=== PATIENT | female | born 1935 | race Caucasian/White ===

== ENCOUNTER 2018-08-31 21:08 | Inpatient (IN) | payer MEDICARE, MEDICAID ==
[~2018-08-31] VITALS: Ht 162.6 cm; Wt 61.8 kg
--- NOTE | 2018-08-31 21:03 | NUR ---
ED Nurse Note: Pt arrived ER with EMT team. EMT states Pt is current having R face swallen to neck, no c/o pain, warm to touch. Pt is Demantia, AO x 1 time, VSS, on room air no distress. ERMD seen Pt at bedside.
[~2018-08-31 21:08] MED LIST: CLOTRIMAZOLE15 GM TOPIC
[2018-08-31] MEDS ORDERED: Ampicillin/Sulbactam Sod 3 GM in NS 110 ML IVPB ONE (21:15)
--- NOTE | 2018-08-31 21:15 | NUR ---
ED Nurse Note: Blood sample sent to Lab.
[2018-08-31 21:35] LABS: BASOPHILS % (AUTO) 0.8 % (0.0-2.0); EOSINOPHILS % (AUTO) 4.1 % (0.0-3.0); HEMATOCRIT 36.7 % (37.0-47.0); HEMOGLOBIN 12.1 G/DL (12.0-16.0); LYMPHOCYTES % (AUTO) 24.2 % (20.0-45.0); MEAN CORPUSCULAR VOLUME 92 FL (80-99); PLATELET COUNT 177 K/UL (150-450); RED BLOOD COUNT 3.98 M/UL (4.20-5.40); RED CELL DISTRIBUTION WIDTH 12.8 % (11.6-14.8); WHITE BLOOD COUNT 7.2 K/UL (4.8-10.8)
[2018-08-31 21:50] LABS: ANION GAP 8 mmol/L (5-15); BLOOD UREA NITROGEN 35 mg/dL (7-18); CALCIUM 8.7 MG/DL (8.5-10.1); CARBON DIOXIDE 28 MMOL/L (21-32); CHLORIDE 106 MMOL/L (98-107); CREATININE 0.7 MG/DL (0.55-1.30); SODIUM 142 MMOL/L (136-145)
[2018-08-31 22:04] LABS: ALANINE AMINOTRANSFERASE 18 U/L (12-78); ALBUMIN/GLOBULIN RATIO 0.7 (1.0-2.7); ALKALINE PHOSPHATASE 95 U/L (46-116); ASPARTATE AMINO TRANSFERASE 13 U/L (15-37); BILIRUBIN,TOTAL 0.3 MG/DL (0.2-1.0)
[2018-08-31 22:14] VITALS: BP 143/81
--- NOTE | 2018-08-31 23:17 | Emergency Room Report ---
History of Present Illness General Chief Complaint: General Complaint Source: Medical Record Present Illness HPI 83-year-old female presents ED for evaluation. Sent to ER for evaluation. Has redness to her face and neck 1 day. Noticed by nursing staff today. Coming from half-way facility. Denies pain. Denies fevers or chills. Denies any shortness of breath. No other aggravating relieving factors. Denies any other associated symptoms Allergies: Coded Allergies: No Known Allergies (Unverified , 08/31/18) Patient History Past Medical History: HTN Past Surgical History: none Pertinent Family History: none Social History: Denies: smoking, alcohol use, drug use Now: No Immunizations: UTD Reviewed Nursing Documentation: PMH: Agreed; PSxH: Agreed Nursing Documentation-PMH Hx Hypertension: Yes Hx Pacemaker: No Hx Asthma: No Hx COPD: No Hx Diabetes: No Hx Cancer: No Hx Dialysis: No Hx Seizures: No Review of Systems All Other Systems: negative except mentioned in HPI Physical Exam Vital Signs Date Time Temp Pulse Resp B/P (MAP) Pulse Ox O2 Delivery O2 Flow Rate FiO2 08/31/18 20:53 98.1 72 16 153/83 92 Room Air Sp02 EP Interpretation: reviewed, normal General Appearance: no apparent distress, alert, GCS 15, non-toxic Head: normocephalic, atraumatic Eyes: bilateral eye normal inspection, bilateral eye PERRL ENT: hearing grossly normal, normal pharynx, no angioedema, normal voice Neck: full range of motion, supple/symm/no masses Respiratory: chest non-tender, lungs clear, normal breath sounds, speaking full sentences Cardiovascular #1: regular rate, rhythm, no edema Cardiovascular #2: 2+ carotid (R), 2+ carotid (L), 2+ radial (R), 2+ radial (L) , 2+ dorsalis pedis (R), 2+ dorsalis pedis (L) Gastrointestinal: normal bowel sounds, non tender, soft, non-distended, no guarding, no rebound Rectal: deferred Genitourinary: normal inspection, no CVA tenderness Musculoskeletal: back normal, gait/station normal, normal range of motion, non- tender Neurologic: alert, oriented x3, responsive, motor strength/tone normal, sensory intact, speech normal Psychiatric: judgement/insight normal, memory normal, mood/affect normal, no suicidal/homicidal ideation Reflexes: 3+ bicep (R), 3+ bicep (L), 3+ tricep (R), 3+ tricep (L), 3+ knee (R) , 3+ knee (L) Skin: normal color, warm/dry, well hydrated, other - erythema/induration to R side neck, R lower face. no fluctuance or discharge Lymphatic: no adenopathy Medical Decision Making Diagnostic Impression: Primary Impression: Facial cellulitis ER Course Hospital Course 83-year-old female presents to ED with redness, warmth to neck and face Differential diagnoses include: Cellulitis, abscess, rash. Clinical course Patient placed on stretcher. After initial history, physical exam reveals an elderly female in no acute distress. On exam there is area of significant erythema and induration to the right side of neck and lower face. No fluctuance or discharge I ordered labs, blood Cx, CXR labs reviewed - no leukocytosis, Hb/Hct stable, no electrolyte abnormalities, lactic ok CXR - atelectasis , no consolidation or infiltrate antibiotics given. Case discussed with Dr Kruger and he agreed to accept the patient to his service for further care and support Diagnosis - facial cellulitis Patient admitted to floor in serious condition Labs Test 08/31/18 21:21 White Blood Count 7.2 K/UL (4.8-10.8) Red Blood Count 3.98 M/UL (4.20-5.40) Hemoglobin 12.1 G/DL (12.0-16.0) Hematocrit 36.7 % (37.0-47.0) Mean Corpuscular Volume 92 FL (80-99) Mean Corpuscular Hemoglobin 30.4 PG (27.0-31.0) Mean Corpuscular Hemoglobin Concent 33.1 G/DL (32.0-36.0) Red Cell Distribution Width 12.8 % (11.6-14.8) Platelet Count 177 K/UL (150-450) Mean Platelet Volume 6.6 FL (6.5-10.1) Neutrophils (%) (Auto) 60.0 % (45.0-75.0) Lymphocytes (%) (Auto) 24.2 % (20.0-45.0) Monocytes (%) (Auto) 11.0 % (1.0-10.0) Eosinophils (%) (Auto) 4.1 % (0.0-3.0) Basophils (%) (Auto) 0.8 % (0.0-2.0) Sodium Level 142 MMOL/L (136-145) Potassium Level 4.0 MMOL/L (3.5-5.1) Chloride Level 106 MMOL/L (98-107) Carbon Dioxide Level 28 MMOL/L (21-32) Anion Gap 8 mmol/L (5-15) Blood Urea Nitrogen 35 mg/dL (7-18) Creatinine 0.7 MG/DL (0.55-1.30) Estimat Glomerular Filtration Rate mL/min (>60) Glucose Level 105 MG/DL (74-106) Lactic Acid Level 1.00 mmol/L (0.4-2.0) Calcium Level 8.7 MG/DL (8.5-10.1) Total Bilirubin 0.3 MG/DL (0.2-1.0) Aspartate Amino Transf (AST/SGOT) 13 U/L (15-37) Alanine Aminotransferase (ALT/SGPT) 18 U/L (12-78) Alkaline Phosphatase 95 U/L (46-116) Total Protein 7.1 G/DL (6.4-8.2) Albumin 3.0 G/DL (3.4-5.0) Globulin 4.1 g/dL Albumin/Globulin Ratio 0.7 (1.0-2.7) Chest X-Ray Diagnostic Results Chest X-Ray Diagnostic Results : Chest X-Ray Ordered: Yes # of Views/Limited/Complete: 1 View Indication: Other EP Interpretation: Yes Interpretation: no effusion, no pneumothorax, other - atelectasis Impression: Other - atelectasis Electronically Signed by: Electronically signed by Joseluis Pittman MD Last Vital Signs Date Time Temp Pulse Resp B/P (MAP) Pulse Ox O2 Delivery O2 Flow Rate FiO2 08/31/18 22:14 98.4 78 18 143/81 96 Room Air Status: improved Disposition: ADMITTED INPATIENT Condition: Serious Referrals: Ramirez Kruger DO (PCP) Joseluis Pittman MD Aug 31, 2018 23:17
--- NOTE | 2018-08-31 23:22 | Diagnostic Imaging Report ---
EXAM: XR Chest, 1 View CLINICAL HISTORY: COUGH TECHNIQUE: Frontal view of the chest. COMPARISON: No relevant prior studies available. FINDINGS: Lungs: Bibasilar atelectasis. Some fibrotic changes are seen in particular in the left lung base. Bronchiectasis is also seen. No consolidation. Pleural space: Unremarkable. No pneumothorax. Heart: Cardiac silhouette appears mildly enlarged, possibly exaggerated due to technique. Mediastinum: Unremarkable. Bones/joints: Unremarkable. Vasculature: Atherosclerosis of the aorta. IMPRESSION: Bibasilar atelectasis. Some fibrotic changes are seen in particular in the left lung base. Bronchiectasis is also seen. No consolidation.
[2018-09-01] VITALS (7 sets, daily range): BP systolic 136–172; BP diastolic 76–92
--- NOTE | 2018-09-01 | NUR ---
ED Nurse Note: Urine sample, MRSA,VRE, CRE culture sent to lab.
[2018-09-01 00:27] LABS: APPEARANCE,URINE CLOUDY; BILIRUBIN, URINE NEGATIVE (NEGATIVE); COLOR,URINE PALE YELLOW; GLUCOSE, URINE (UA) NEGATIVE (NEGATIVE); KETONES,URINE NEGATIVE (NEGATIVE); LEUKOCYTE ESTERASE ,URINE 3+ (NEGATIVE); NITRITE,URINE POSITIVE (NEGATIVE); PH,URINE 6 (4.5-8.0); PROTEIN,URINE 1+ (NEGATIVE); UROBILINOGEN,URINE NORMAL MG/DL (0.0-1.0)
--- NOTE | 2018-09-01 00:50 | NUR ---
ED Nurse Note: Admit Pt to 4E room 406-2, Pt is AO x 1 time, VSS, ob=n room air no distress. Skin issue report to floor RN. Report given to Charge nurse Yon.
--- NOTE | 2018-09-01 01:00 | NUR ---
ED Nurse Note: Message left to Dr pedersne for admit orders, await for respond back.
[2018-09-01] MEDS ORDERED: ACETAMINOPHEN325 M1 ORAL (02:29)
[2018-09-01] MEDS ORDERED: LEVOTHYROXINE75 MCG ORAL (02:29)
[2018-09-01] MEDS ORDERED: SENNA8.6 M2 PO (02:29)
[2018-09-01] MEDS ORDERED: ASPIRIN EC81 MG ORAL (02:29)
[2018-09-01] MEDS ORDERED: ARTIFICIAL TEAR15 ML BOTH EYES (02:29)
[2018-09-01] MEDS ORDERED: MULTIVITAMINS1 EAC2 ORAL (02:29)
[2018-09-01] MEDS ORDERED: BISACODYL5 MG RECTAL (02:29)
[2018-09-01] MEDS ORDERED: SORBITOL PO (02:29)
--- NOTE | 2018-09-01 02:41 | NUR ---
NURSE NOTES: Patient came up with no patient belongings.
--- NOTE | 2018-09-01 02:41 | NUR ---
NURSE NOTES: RECEIVED PATIENT FROM ER, RELIEF CHARGE NURSE GOT REPORT FROM NAN YOUNG. PATIENT IN BED, AWAKE, ALERT TO NAME AND PLACE. ORIENTATED TO ROOM AND USE OF CALL LIGHT FOR ASSISTANCE. IV IN PLACE, PATENT. PATIENT DENIES ANY FEELING OF PAIN. NO S/S RESPIRATORY DISTRESS NOTED. SKIN ASSESSMENT DONE, PINK AND REDNESS NOTED IN THE SACRAL/BUTTOCKS AREA AND PERINEAL AREA. WCP TAKEN AND WILL BE UPLOADED. PUREWICK PUT ON FOR INCONTINENCE MANAGEMENT. PATIENT HAD A BOWEL MOVEMENT. BED IN LOWEST POSITION, CALL LIGHT WITHIN REACH, BED ALARM ON. WILL CONTINUE TO MONITOR. LEFT MESSAGE FOR DR. ADORNO REGARDING ADMISSION ORDERS, AWAITING RESPONSE.
--- NOTE | 2018-09-01 03:31 | NUR ---
NURSE NOTES: Called and left another message for Dr. Kruger regarding admission orders, awaiting response.
[2018-09-01] MEDS: Levothyroxine 25mcg tab ORAL SCH (05:58)
--- NOTE | 2018-09-01 07:04 | NUR ---
HAND-OFF: Report given to BRIAN Faye RN.
--- NOTE | 2018-09-01 07:26 | NUR ---
NURSE NOTES: Received report from NAN Crum. Patient alert, verbally responsive. no distress noted. no c/o pain. bed in lowest position. call light within reach. will continue to monitor.
[2018-09-01] MEDS: Aspirin EC 81mg tab ORAL SCH (08:19)
[2018-09-01] MEDS ORDERED: Sorbitol Solution UD 30ml ORAL PRN (09:00)
[2018-09-01] MEDS: Artificial Tears 1.4% Op Soln BOTH EYES SCH (10:30)
--- NOTE | 2018-09-01 10:32 | NUR ---
NURSE NOTES: administered artificial tear at 1030 d/t late delivery. scheduled at 9am.
--- NOTE | 2018-09-01 11:39 | NUR ---
CASE MANAGEMENT: INITIAL REVIEW 83 YO F BIBA [place] [facility] [place] CC: REDNESS/SWELLING RIGHT -SIDE NECK PMHx: HTN. SI:FACIAL CELLULITIS. T 98.1 HR 72 RR 16 B/P 153/83 SATS 92% ON RA BUN 35 AST 13 IS: UNASYN IV X1 NS BOLUS X1 PATIENT ADMITTED TO MED/SURG 08/31/2018 @ 0560 DCP:PATIENT TO BE DISCHARGED TO SNF ONCE MEDICALLY CLEARED. PLAN OF CARE: WOUND CARE
[2018-09-01] MEDS: ceFAZolin sod 1 GM in D5W 55 ML IVPB SCH ×2 (15:32→21:28)
--- NOTE | 2018-09-01 17:44 | Consultation ---
DATE OF CONSULTATION: 09/01/2018 INFECTIOUS DISEASE CONSULTATION CONSULTING PHYSICIAN: Jose J Leon M.D. PRIMARY ATTENDING PHYSICIAN: Ramirez Kruger D.O., and Ann-Marie Purvis M.D., who is covering. REASON FOR CONSULTATION: Right facial cellulitis. HISTORY OF PRESENT ILLNESS: This is an 83-year-old white female who is a [place] [facility] resident, admitted yesterday because of erythema in the right side of the face for 1 day. The patient does not have any pain and other symptoms. PAST MEDICAL HISTORY: Significant for hypertension, hypothyroidism, history of osteoporosis, hyperlipidemia. ALLERGIES: No known drug allergy. MEDICATIONS: Getting Senokot, Artificial Tears, multivitamin, sorbitol, levothyroxine. Got a dose of Unasyn. SOCIAL HISTORY: shelter resident. . No history of alcohol or drug abuse or smoking. REVIEW OF SYSTEMS: The patient denies any fever, chills, pain, nausea, vomiting, difficulty of passing urine. PHYSICAL EXAMINATION: VITAL SIGNS: Temperature 98.3, pulse 65, blood pressure 149/83. GENERAL APPEARANCE: No acute distress. HEAD AND NECK: She has decayed tooth, likely gingivitis. She has erythema in right side of the face involving the ear without any discharge. HEART: Normal rate. LUNGS: Clear. ABDOMEN: Soft, nontender. EXTREMITIES: She has no edema. She has muscle atrophy. NEUROLOGIC: She is hard of hearing. She has hearing loss. LABORATORY AND DIAGNOSTIC DATA: Sodium 142, potassium 4, chloride 106, bicarbonate 28, BUN 35, creatinine 0.7, albumin 3. WBC 7.2, hemoglobin 12.1, hematocrit 36.7, and platelet is 177,000. UA showed wbc too numerous to count, leukocyte esterase positive, nitrite positive. IMPRESSION: Right facial cellulitis that seems to be nonpurulent. The patient has pyuria, decayed teeth, gingivitis, hypertension, hypothyroidism, osteoporosis, likely dementia, and is DNR status. RECOMMENDATION: We will start antibiotic with Ancef. We will follow up the cultures. At the end of my exam, I thank Dr. Purvis for involving me in the care of this patient. Jose J Leon M.D. DR: Carito JOB#: [id number] CC: JUSTA
--- NOTE | 2018-09-01 19:19 | NUR ---
HAND-OFF: Report given to NAN Montero.
--- NOTE | 2018-09-01 19:37 | NUR ---
NURSE NOTES: Patient in bed, awake, verbally responsive. No s/s distress noted. No c/o pain. Bed in lowest position. Call light within reach, bed alarm on. Will continue to monitor.
[2018-09-01] MEDS: Sennosides 8.6mg tab ORAL SCH (21:28)
[2018-09-02 00:39] VITALS: BP 133/81
[2018-09-02 04:23] VITALS: BP 135/83
--- NOTE | 2018-09-02 04:45 | History and Physical Report ---
DATE OF ADMISSION: 08/31/[address] Ramirez Kruger. This is Dr. Ramirez Kruger's patient. HISTORY: The patient is admitted for facial cellulitis. The patient has redness in her face and neck for one day. Denies fever or chills. Denies shortness of breath. Denies cough. Denies any chills. PAST MEDICAL HISTORY: Significant for hypertension and organic brain syndrome. PAST SURGICAL HISTORY: Denies. FAMILY HISTORY: Noncontributory. SOCIAL HISTORY: History of smoking. Denies alcohol or illicit drugs. Comes from facility. REVIEW OF SYSTEMS: HEENT: Denies headaches. RESPIRATORY: Denies shortness of breath. Denies cough. CARDIOVASCULAR: Denies chest pain. GASTROINTESTINAL: Denies any nausea, vomiting, or diarrhea. EXTREMITIES: Denies pain in lower extremities. CENTRAL NERVOUS SYSTEM: Denies change in vision or speech pattern. PHYSICAL EXAMINATION: VITAL SIGNS: Temperature 98 degrees, pulse 69, blood pressure 140/90. HEENT: PERRLA. NECK: Supple. The patient has some facial edema and mild facial erythema. CHEST: Clear to auscultation. CARDIOVASCULAR: Regular rate and rhythm. LABORATORY DATA: , glucose of 105. ASSESSMENT AND PLAN: Facial cellulitis. I have asked Dr. Jose J Leon to see the patient for this facial cellulitis. The patient swelling from the right ear to the right lower back, admitted for cellulitis. Dr. Leon has been consulted for that matter. Ann-Marie Purvis M.D. DR: VAUGHN JOB#: [id number] CC:
[2018-09-02] MEDS: Levothyroxine 25mcg tab ORAL SCH (05:35)
[2018-09-02] MEDS: ceFAZolin sod 1 GM in D5W 55 ML IVPB SCH ×3 (05:35→21:10)
[2018-09-02 06:27] LABS: BASOPHILS % (AUTO) 0.7 % (0.0-2.0); EOSINOPHILS % (AUTO) 4.7 % (0.0-3.0); HEMATOCRIT 34.4 % (37.0-47.0); HEMOGLOBIN 11.4 G/DL (12.0-16.0); LYMPHOCYTES % (AUTO) 24.4 % (20.0-45.0); MEAN CORPUSCULAR VOLUME 93 FL (80-99); MONOCYTES % (AUTO) 8.3 % (1.0-10.0); NEUTROPHILS % (AUTO) 61.9 % (45.0-75.0); PLATELET COUNT 168 K/UL (150-450); RED CELL DISTRIBUTION WIDTH 12.2 % (11.6-14.8); WHITE BLOOD COUNT 5.7 K/UL (4.8-10.8)
--- NOTE | 2018-09-02 06:35 | NUR ---
NURSE NOTES: Patient cleaned, had a bowel movement, repositioned. No distress.
[2018-09-02 06:52] LABS: ANION GAP 7 mmol/L (5-15); BLOOD UREA NITROGEN 29 mg/dL (7-18); CALCIUM 8.5 MG/DL (8.5-10.1); CARBON DIOXIDE 29 MMOL/L (21-32); CHLORIDE 106 MMOL/L (98-107); CREATININE 0.7 MG/DL (0.55-1.30); POTASSIUM 3.8 MMOL/L (3.5-5.1); SODIUM 141 MMOL/L (136-145)
--- NOTE | 2018-09-02 07:25 | NUR ---
HAND-OFF: Report given to CHEN PINTO RN.
--- NOTE | 2018-09-02 07:36 | NUR ---
NURSE NOTES: Received patient from NAN Crum. Patient is awake, eating breakfast in bed. Patient is not in respiratory distress, in room air. Bed in the lowest position, call light is within reach. Will continue to monitor patient.
--- NOTE | 2018-09-02 07:41 | NUR ---
NURSE NOTES: Received patient from Skyla Kaplan RN, patient is up in bed eating breakfast, no distress noted, patient denies discomfort, bed is locked and in lowest position, call light within reach, will continue to monitor.
[2018-09-02 08:00] VITALS: BP 144/82
[2018-09-02] MEDS: Aspirin EC 81mg tab ORAL SCH (09:38)
[2018-09-02] MEDS: Artificial Tears 1.4% Op Soln BOTH EYES SCH (09:39)
--- NOTE | 2018-09-02 11:41 | NUR ---
PRODUCE MANAGERTRIAGE REGISTER NURSE SI: FACIAL CELLULITIS,UTI T. 97.5 HR 73 RR 18 B/P 144/82 IS: CEFAZOLIN IV ASA PO SYNTHROID PO MED/SURG STATUS
[2018-09-02 12:00] VITALS: BP 160/85
--- NOTE | 2018-09-02 13:59 | Infectious Diseases Prog Note ---
Assessment/Plan Assessment/Plan A; Right facial cellulitis that seems to be nonpurulent. Bacteriuria pyuria, decayed teeth, gingivitis, hypertension, hypothyroidism, osteoporosis, dementia P; Continue Ancef Will f/u cultures Subjective ROS Limited/Unobtainable: Yes Constitutional: Reports: no symptoms Respiratory: Reports: no symptoms Cardiovascular: Reports: no symptoms Gastrointestinal/Abdominal: Reports: no symptoms Musculoskeletal: Reports: no symptoms Allergies: Coded Allergies: No Known Allergies (Unverified , 08/31/18) Objective Vital Signs Last 24 Hour Vital Signs Date Time Temp Pulse Resp B/P (MAP) Pulse Ox O2 Delivery O2 Flow Rate FiO2 09/02/18 12:00 98.6 64 18 160/85 (110) 96 09/02/18 09:00 Room Air 09/02/18 08:00 97.5 73 18 144/82 (102) 96 09/02/18 04:23 98.2 69 19 135/83 (100) 96 09/02/18 00:39 98.1 82 19 133/81 (98) 95 09/01/18 22:03 Room Air 09/01/18 20:00 98.3 76 19 136/76 (96) 94 09/01/18 16:00 99.2 80 19 147/85 (105) 94 Height (Feet): 5 Height (Inches): 4.00 Weight (Pounds): 133 HEENT: mucous membranes moist Respiratory/Chest: lungs clear Cardiovascular: normal rate Abdomen: soft, non tender Extremities: no edema Skin: other - erythema R ear & lateral face Neurologic/Psychiatric: alert, responsive Microbiology Date/Time Source Procedure Growth Status 08/31/18 21:40 Blood Blood Culture - Preliminary NO GROWTH AFTER 24 HOURS Resulted 08/31/18 21:15 Blood Blood Culture - Preliminary NO GROWTH AFTER 24 HOURS Resulted 08/31/18 23:10 Urine,Clean Catch Urine Culture - Preliminary Gram Negative Bacillus 1 Resulted Laboratory Tests Test 09/02/18 06:15 White Blood Count 5.7 K/UL (4.8-10.8) Red Blood Count 3.70 M/UL (4.20-5.40) L Hemoglobin 11.4 G/DL (12.0-16.0) L Hematocrit 34.4 % (37.0-47.0) L Mean Corpuscular Volume 93 FL (80-99) Mean Corpuscular Hemoglobin 30.9 PG (27.0-31.0) Mean Corpuscular Hemoglobin Concent 33.2 G/DL (32.0-36.0) Red Cell Distribution Width 12.2 % (11.6-14.8) Platelet Count 168 K/UL (150-450) Mean Platelet Volume 6.6 FL (6.5-10.1) Neutrophils (%) (Auto) 61.9 % (45.0-75.0) Lymphocytes (%) (Auto) 24.4 % (20.0-45.0) Monocytes (%) (Auto) 8.3 % (1.0-10.0) Eosinophils (%) (Auto) 4.7 % (0.0-3.0) H Basophils (%) (Auto) 0.7 % (0.0-2.0) Sodium Level 141 MMOL/L (136-145) Potassium Level 3.8 MMOL/L (3.5-5.1) Chloride Level 106 MMOL/L (98-107) Carbon Dioxide Level 29 MMOL/L (21-32) Anion Gap 7 mmol/L (5-15) Blood Urea Nitrogen 29 mg/dL (7-18) H Creatinine 0.7 MG/DL (0.55-1.30) Estimat Glomerular Filtration Rate mL/min (>60) Glucose Level 105 MG/DL (74-106) Calcium Level 8.5 MG/DL (8.5-10.1) Current Medications Medications (Trade) Dose Ordered Sig/Katie Route PRN Reason Start Time Stop Time Status Last Admin Dose Admin Acetaminophen (Tylenol) 650 mg Q4H PRN ORAL For Pain 09/01/18 05:00 10/01/18 04:59 Artificial Tears (Akwa-Tears) 1 drop DAILY BOTH EYES 09/01/18 09:00 10/01/18 08:59 09/02/18 09:39 Aspirin (Ecotrin) 81 mg DAILY ORAL 09/01/18 09:00 10/01/18 08:59 09/02/18 09:38 Bisacodyl (Dulcolax) 10 mg Q24H PRN RECTAL Constipation 09/01/18 05:15 10/01/18 05:14 Cefazolin Sodium 1 gm/Dextrose 55 ml @ 110 mls/hr Q8HR IVPB 09/01/18 15:30 09/08/18 15:29 09/02/18 05:35 Clonidine HCl (Catapres Tab) 0.1 mg EVERY 6 HOURS PRN ORAL For High Blood Pressure 09/01/18 05:00 10/01/18 04:59 Levothyroxine Sodium (Synthroid) 25 mcg ACBREAKFAST ORAL 09/01/18 06:30 10/01/18 06:29 09/02/18 05:35 Multivitamins (Multivitamins) 1 tab DAILY ORAL 09/01/18 09:00 10/01/18 08:59 09/02/18 09:38 Sennosides (Senokot) 17.2 mg BEDTIME ORAL 09/01/18 21:00 10/01/18 20:59 09/01/18 21:28 Sorbitol (Sorbitol) 30 ml Q6H PRN ORAL Constipation 09/01/18 09:00 10/01/18 08:59 Jose J Leon MD Sep 02, 2018 13:59
--- NOTE | 2018-09-02 15:04 | Consultation ---
History of Present Illness General Date patient seen: Sep 02, 2018 Chief Complaint: General Complaint Present Illness HPI 83-year-old female with hx of HTN, COPD, Hypothyroid, [facility] presented to ED for evaluation of redness to her face and neck 1 day. Noticed by nursing staff today. Denies pain. Denies fevers or chills. Pt was diagnosed to have facial cellulitis and admitted for further evaluation. Allergies: Coded Allergies: No Known Allergies (Unverified , 08/31/18) Medication History Scheduled Aspirin Ec* (Aspirin Ec*), 81 MG ORAL DAILY, (Reported) Dextran 70/Hypromellose (Artificial Tears Eye Drops*), 1 DROP BOTH EYES DAILY, ( Reported) Levothyroxine Sodium* (Levothyroxine Sodium*), 25 MCG ORAL DAILY, (Reported) Multivitamins* (Multivitamins*), 1 TAB ORAL DAILY, (Reported) Sennosides (Senna), 17.2 MG PO BEDTIME, (Reported) Scheduled PRN Acetaminophen* (Acetaminophen 325MG Tablet*), 650 MG ORAL Q4H PRN for For Pain, (Reported) Bisacodyl* (Dulcolax*), 10 MG RECTAL every 24 hours PRN for Constipation, ( Reported) Sorbitol Solution (Sorbitol), 30 ML PO EVERY 6 HOURS PRN for Constipation, ( Reported) Discontinued Medications Clotrimazole* (Lotrimin*), 1 APPLIC TOPIC TWICE A DAY Discontinued Reason: Pt stopped taking med Patient History Healthcare decision maker CB LEACH, SON Resuscitation status Advanced Directive on File Past Medical/Surgical History Past Medical/Surgical History: (1) COPD (chronic obstructive pulmonary disease) (2) Hypothyroidism (3) History of hypertension Physical Exam General Appearance: WD/WN Lines, tubes and drains: peripheral HEENT: normocephalic, atraumatic Neck: non-tender, normal alignment Respiratory/Chest: chest wall non-tender, lungs clear Breasts: no masses Cardiovascular/Chest: normal peripheral pulses Abdomen: normal bowel sounds Genitourinary/Rectal: normal genital exam Extremities: normal range of motion Last 24 Hour Vital Signs Date Time Temp Pulse Resp B/P (MAP) Pulse Ox O2 Delivery O2 Flow Rate FiO2 09/02/18 12:00 98.6 64 18 160/85 (110) 96 09/02/18 09:00 Room Air 09/02/18 08:00 97.5 73 18 144/82 (102) 96 09/02/18 04:23 98.2 69 19 135/83 (100) 96 09/02/18 00:39 98.1 82 19 133/81 (98) 95 09/01/18 22:03 Room Air 09/01/18 20:00 98.3 76 19 136/76 (96) 94 09/01/18 16:00 99.2 80 19 147/85 (105) 94 Intake and Output 09/01/18 09/02/18 19:00 07:00 Intake Total 655 ml 110 ml Output Total 300 ml 700 ml Balance 355 ml -590 ml Intake Oral 600 ml IV Total 55 ml 110 ml Output Urine Total 300 ml 700 ml # Voids 3 1 Laboratory Tests Test 09/02/18 06:15 White Blood Count 5.7 K/UL (4.8-10.8) Red Blood Count 3.70 M/UL (4.20-5.40) L Hemoglobin 11.4 G/DL (12.0-16.0) L Hematocrit 34.4 % (37.0-47.0) L Mean Corpuscular Volume 93 FL (80-99) Mean Corpuscular Hemoglobin 30.9 PG (27.0-31.0) Mean Corpuscular Hemoglobin Concent 33.2 G/DL (32.0-36.0) Red Cell Distribution Width 12.2 % (11.6-14.8) Platelet Count 168 K/UL (150-450) Mean Platelet Volume 6.6 FL (6.5-10.1) Neutrophils (%) (Auto) 61.9 % (45.0-75.0) Lymphocytes (%) (Auto) 24.4 % (20.0-45.0) Monocytes (%) (Auto) 8.3 % (1.0-10.0) Eosinophils (%) (Auto) 4.7 % (0.0-3.0) H Basophils (%) (Auto) 0.7 % (0.0-2.0) Sodium Level 141 MMOL/L (136-145) Potassium Level 3.8 MMOL/L (3.5-5.1) Chloride Level 106 MMOL/L (98-107) Carbon Dioxide Level 29 MMOL/L (21-32) Anion Gap 7 mmol/L (5-15) Blood Urea Nitrogen 29 mg/dL (7-18) H Creatinine 0.7 MG/DL (0.55-1.30) Estimat Glomerular Filtration Rate mL/min (>60) Glucose Level 105 MG/DL (74-106) Calcium Level 8.5 MG/DL (8.5-10.1) Height (Feet): 5 Height (Inches): 4.00 Weight (Pounds): 133 Medications Current Medications Medications (Trade) Dose Ordered Sig/Katie Route PRN Reason Start Time Stop Time Status Last Admin Dose Admin Acetaminophen (Tylenol) 650 mg Q4H PRN ORAL For Pain 09/01/18 05:00 10/01/18 04:59 Artificial Tears (Akwa-Tears) 1 drop DAILY BOTH EYES 09/01/18 09:00 10/01/18 08:59 09/02/18 09:39 Aspirin (Ecotrin) 81 mg DAILY ORAL 09/01/18 09:00 10/01/18 08:59 09/02/18 09:38 Bisacodyl (Dulcolax) 10 mg Q24H PRN RECTAL Constipation 09/01/18 05:15 10/01/18 05:14 Cefazolin Sodium 1 gm/Dextrose 55 ml @ 110 mls/hr Q8HR IVPB 09/01/18 15:30 09/08/18 15:29 09/02/18 14:48 Clonidine HCl (Catapres Tab) 0.1 mg EVERY 6 HOURS PRN ORAL For High Blood Pressure 09/01/18 05:00 10/01/18 04:59 Levothyroxine Sodium (Synthroid) 25 mcg ACBREAKFAST ORAL 09/01/18 06:30 10/01/18 06:29 09/02/18 05:35 Multivitamins (Multivitamins) 1 tab DAILY ORAL 09/01/18 09:00 10/01/18 08:59 09/02/18 09:38 Sennosides (Senokot) 17.2 mg BEDTIME ORAL 09/01/18 21:00 10/01/18 20:59 09/01/18 21:28 Sorbitol (Sorbitol) 30 ml Q6H PRN ORAL Constipation 09/01/18 09:00 10/01/18 08:59 Assessment/Plan Problem List: (1) Facial cellulitis ICD Codes: L03.211 - Cellulitis of face SNOMED: 439569377 (2) Hypothyroidism ICD Codes: E03.9 - Hypothyroidism, unspecified SNOMED: 99324743 (3) History of hypertension ICD Codes: Z86.79 - Personal history of other diseases of the circulatory system SNOMED: 068957068 (4) COPD (chronic obstructive pulmonary disease) ICD Codes: J44.9 - Chronic obstructive pulmonary disease, unspecified SNOMED: 86620879 Assessment/Plan ABx as per Id check t3 t4 symptomatic treatment respiratory treatment dvt prophylaxis. Shilpi Hernandez MD Sep 02, 2018 15:04
[2018-09-02] MEDS ORDERED: Albuterol/Ipratropium 3ml neb HHN PRN (15:15)
[2018-09-02 16:00] VITALS: BP 140/93
--- NOTE | 2018-09-02 19:16 | NUR ---
NURSE NOTES: PATIENT IN BED, AWAKE, VERBALLY RESPONSIVE. IV IN PLACE. PATIENT DENIES ANY FEELINGS OF PAIN. BED IN LOWEST POSITION, CALL LIGHT WITHIN REACH, BED ALARM ON, WILL CONTINUE TO MONITOR.
--- NOTE | 2018-09-02 19:17 | NUR ---
HAND-OFF: Report given to NAN Crum.
--- NOTE | 2018-09-02 19:18 | NUR ---
HAND-OFF: Report given to Skyla BARKER.
[2018-09-02 20:17] VITALS: BP 127/69
[2018-09-02] MEDS: Sennosides 8.6mg tab ORAL SCH (20:22)
--- NOTE | 2018-09-02 21:50 | General Progress Note ---
Assessment/Plan Problem List: (1) Facial cellulitis ICD Codes: L03.211 - Cellulitis of face SNOMED: 599968158 (2) History of hypertension ICD Codes: Z86.79 - Personal history of other diseases of the circulatory system SNOMED: 449191724 (3) Hypothyroidism ICD Codes: E03.9 - Hypothyroidism, unspecified SNOMED: 41765675 Status: progressing Assessment/Plan facial cellulitis improving htn hypothyroid afebrile vitals stable Subjective ROS Limited/Unobtainable: Yes Allergies: Coded Allergies: No Known Allergies (Unverified , 08/31/18) Objective Last 24 Hour Vital Signs Date Time Temp Pulse Resp B/P (MAP) Pulse Ox O2 Delivery O2 Flow Rate FiO2 09/02/18 20:17 99.4 72 18 127/69 (88) 92 09/02/18 16:00 98.9 74 18 140/93 (109) 94 09/02/18 16:00 98.9 74 18 140/93 (109) 94 09/02/18 12:00 98.6 64 18 160/85 (110) 96 09/02/18 09:00 Room Air 09/02/18 08:00 97.5 73 18 144/82 (102) 96 09/02/18 04:23 98.2 69 19 135/83 (100) 96 09/02/18 00:39 98.1 82 19 133/81 (98) 95 09/01/18 22:03 Room Air Intake and Output 09/01/18 09/02/18 18:59 06:59 Intake Total 655 ml 110 ml Output Total 300 ml 700 ml Balance 355 ml -590 ml Intake Oral 600 ml IV Total 55 ml 110 ml Output Urine Total 300 ml 700 ml # Voids 3 1 Laboratory Tests 09/02/18 06:15: White Blood Count 5.7, Red Blood Count 3.70L, Hemoglobin 11.4L, Hematocrit 34.4L , Mean Corpuscular Volume 93, Mean Corpuscular Hemoglobin 30.9, Mean Corpuscular Hemoglobin Concent 33.2, Red Cell Distribution Width 12.2, Platelet Count 168, Mean Platelet Volume 6.6, Neutrophils (%) (Auto) 61.9, Lymphocytes (% ) (Auto) 24.4, Monocytes (%) (Auto) 8.3, Eosinophils (%) (Auto) 4.7H, Basophils (%) (Auto) 0.7, Sodium Level 141, Potassium Level 3.8, Chloride Level 106, Carbon Dioxide Level 29, Anion Gap 7, Blood Urea Nitrogen 29H, Creatinine 0.7, Estimat Glomerular Filtration Rate , Glucose Level 105, Calcium Level 8.5 Height (Feet): 5 Height (Inches): 4.00 Weight (Pounds): 133 Neck: supple Cardiovascular: normal rate Respiratory/Chest: lungs clear Abdomen: soft Ann-Marie Purvis MD Sep 02, 2018 21:50
[2018-09-03 00:31] VITALS: BP 141/63
[2018-09-03 04:00] VITALS: BP 126/74
[2018-09-03] MEDS: Levothyroxine 25mcg tab ORAL SCH (05:41)
[2018-09-03] MEDS: ceFAZolin sod 1 GM in D5W 55 ML IVPB SCH ×3 (05:42→22:26)
--- NOTE | 2018-09-03 06:01 | NUR ---
NURSE NOTES: PATIENT ASLEEP, NO S/S DISTRESS.
--- NOTE | 2018-09-03 07:22 | NUR ---
HAND-OFF: Report given to salvador harrington rn.
--- NOTE | 2018-09-03 07:51 | NUR ---
NURSE NOTES: Received patient asleep. Easily arousable. IV on RFA intact. Bed in lowest position. Call light made within reach. Will continue to monitor.
[2018-09-03 08:00] VITALS: BP 145/74
[2018-09-03] MEDS: Aspirin EC 81mg tab ORAL SCH ×2 (08:59→09:00)
[2018-09-03] MEDS: Artificial Tears 1.4% Op Soln BOTH EYES SCH (08:59)
--- NOTE | 2018-09-03 10:41 | NUR ---
NURSE NOTES: left message with Dr. Leon regarding patient positive for mrsa in nares
[2018-09-03 12:00] VITALS: BP 139/73
--- NOTE | 2018-09-03 12:52 | General Progress Note ---
Assessment/Plan Problem List: (1) History of hypertension ICD Codes: Z86.79 - Personal history of other diseases of the circulatory system SNOMED: 428133838 (2) Facial cellulitis ICD Codes: L03.211 - Cellulitis of face SNOMED: 890962925 (3) COPD (chronic obstructive pulmonary disease) ICD Codes: J44.9 - Chronic obstructive pulmonary disease, unspecified SNOMED: 16563699 (4) Hypothyroidism ICD Codes: E03.9 - Hypothyroidism, unspecified SNOMED: 96665790 Status: stable, progressing Assessment/Plan o2 pulm tx abx cbc bmp am dc plan if clear Subjective Constitutional: Reports: weakness Allergies: Coded Allergies: No Known Allergies (Unverified , 08/31/18) All Systems: reviewed and negative except above Objective Last 24 Hour Vital Signs Date Time Temp Pulse Resp B/P (MAP) Pulse Ox O2 Delivery O2 Flow Rate FiO2 09/03/18 09:00 Room Air 09/03/18 08:00 98.1 65 18 145/74 (97) 100 09/03/18 04:00 98.3 68 18 126/74 (91) 100 09/03/18 00:31 98.9 64 18 141/63 (89) 97 09/02/18 22:13 66 20 Room Air 09/02/18 22:02 Room Air 09/02/18 20:17 99.4 72 18 127/69 (88) 92 09/02/18 16:00 98.9 74 18 140/93 (109) 94 09/02/18 16:00 98.9 74 18 140/93 (109) 94 Intake and Output 09/02/18 09/03/18 19:00 07:00 Intake Total 360 ml 210 ml Balance 360 ml 210 ml Intake Oral 360 ml 100 ml IV Total 110 ml # Voids 2 Height (Feet): 5 Height (Inches): 4.00 Weight (Pounds): 133 General Appearance: lethargic EENT: normal ENT inspection Neck: normal alignment Cardiovascular: normal peripheral pulses, normal rate, regular rhythm Abdomen: normal bowel sounds, non tender, soft Extremities: normal inspection Edema: no edema noted Arm (L), no edema noted Arm (R), no edema noted Leg (L), no edema noted Leg (R), no edema noted Pedal (L), no edema noted Pedal (R), no edema noted Generalized Neurologic: motor weakness Skin: normal pigmentation, warm/dry Objective sl right neck redness Ramirez Kruger DO Sep 03, 2018 12:52
--- NOTE | 2018-09-03 13:08 | Pulmonology Progress Note ---
Assessment/Plan Problems: (1) Facial cellulitis (2) Hypothyroidism (3) History of hypertension (4) COPD (chronic obstructive pulmonary disease) Assessment/Plan symptomatic treatment respiratory treatment caban culture on Cefazolin dvt prophylaxis. Subjective ROS Limited/Unobtainable: No Constitutional: Reports: no symptoms HEENT: Repors: no symptoms Respiratory: Reports: no symptoms Allergies: Coded Allergies: No Known Allergies (Unverified , 08/31/18) Objective Last 24 Hour Vital Signs Date Time Temp Pulse Resp B/P (MAP) Pulse Ox O2 Delivery O2 Flow Rate FiO2 09/03/18 09:00 Room Air 09/03/18 08:00 98.1 65 18 145/74 (97) 100 09/03/18 04:00 98.3 68 18 126/74 (91) 100 09/03/18 00:31 98.9 64 18 141/63 (89) 97 09/02/18 22:13 66 20 Room Air 09/02/18 22:02 Room Air 09/02/18 20:17 99.4 72 18 127/69 (88) 92 09/02/18 16:00 98.9 74 18 140/93 (109) 94 09/02/18 16:00 98.9 74 18 140/93 (109) 94 Intake and Output 09/02/18 09/03/18 19:00 07:00 Intake Total 360 ml 210 ml Balance 360 ml 210 ml Intake Oral 360 ml 100 ml IV Total 110 ml # Voids 2 General Appearance: WD/WN HEENT: normocephalic, atraumatic Respiratory/Chest: chest wall non-tender, lungs clear Breasts: no masses Cardiovascular: normal peripheral pulses, normal rate Abdomen: normal bowel sounds, no organomegaly Genitourinary: normal external genitalia Extremities: no clubbing Skin: no lesions Microbiology Date/Time Source Procedure Growth Status 08/31/18 21:40 Blood Blood Culture - Preliminary NO GROWTH AFTER 48 HOURS Resulted 08/31/18 21:15 Blood Blood Culture - Preliminary NO GROWTH AFTER 48 HOURS Resulted 08/31/18 22:10 Nasal Nares MRSA Culture - Final Staphylococcus Aureus - Mrsa Complete 08/31/18 23:10 Urine,Clean Catch Urine Culture - Final Escherichia Coli Complete 08/31/18 22:10 Rectum - Final NO CARBAPENEM-RESISTANT ENTEROBACTERI... Complete 08/31/18 22:10 Rectum VRE Culture - Final NO VANCOMYCIN RESISTANT ENTEROCOCCUS ... Complete Current Medications Medications (Trade) Dose Ordered Sig/Katie Route PRN Reason Start Time Stop Time Status Last Admin Dose Admin Acetaminophen (Tylenol) 650 mg Q4H PRN ORAL For Pain 09/01/18 05:00 10/01/18 04:59 Albuterol/ Ipratropium (Albuterol/ Ipratropium) 3 ml Q4H PRN HHN Shortness of Breath 09/02/18 15:15 09/07/18 15:14 Artificial Tears (Akwa-Tears) 1 drop DAILY BOTH EYES 09/01/18 09:00 10/01/18 08:59 09/03/18 08:59 Aspirin (Ecotrin) 81 mg DAILY ORAL 09/01/18 09:00 10/01/18 08:59 09/02/18 09:38 Bisacodyl (Dulcolax) 10 mg Q24H PRN RECTAL Constipation 09/01/18 05:15 10/01/18 05:14 Cefazolin Sodium 1 gm/Dextrose 55 ml @ 110 mls/hr Q8HR IVPB 09/01/18 15:30 09/08/18 15:29 09/03/18 05:42 Clonidine HCl (Catapres Tab) 0.1 mg EVERY 6 HOURS PRN ORAL For High Blood Pressure 09/01/18 05:00 10/01/18 04:59 Levothyroxine Sodium (Synthroid) 25 mcg ACBREAKFAST ORAL 09/01/18 06:30 10/01/18 06:29 09/03/18 05:41 Multivitamins (Multivitamins) 1 tab DAILY ORAL 09/01/18 09:00 10/01/18 08:59 09/02/18 09:38 Sennosides (Senokot) 17.2 mg BEDTIME ORAL 09/01/18 21:00 10/01/18 20:59 09/02/18 20:22 Sorbitol (Sorbitol) 30 ml Q6H PRN ORAL Constipation 09/01/18 09:00 10/01/18 08:59 Shilpi Hernandez MD Sep 03, 2018 13:08
[2018-09-03] MEDS ORDERED: NS 275ml ONE (14:56)
[2018-09-03] MEDS ORDERED: Tubing IV Secondary IV ONE (14:56)
--- NOTE | 2018-09-03 15:23 | NUR ---
*-* DISCHARGE PLANNING *-* PATIENT HAS BEEN REFERRED TO: [facility] P:[phone] F:[phone]
--- NOTE | 2018-09-03 15:34 | Infectious Diseases Prog Note ---
Assessment/Plan Assessment/Plan A; Right facial cellulitis versus dermatitis Bacteriuria with E.coli decayed teeth, gingivitis, hypertension, hypothyroidism, osteoporosis, dementia P; Continue Ancef, add Ciprofloxacin Will f/u cultures Subjective ROS Limited/Unobtainable: Yes Gastrointestinal/Abdominal: Reports: no symptoms Genitourinary: Reports: no symptoms Allergies: Coded Allergies: No Known Allergies (Unverified , 08/31/18) Objective Vital Signs Last 24 Hour Vital Signs Date Time Temp Pulse Resp B/P (MAP) Pulse Ox O2 Delivery O2 Flow Rate FiO2 09/03/18 12:00 97.7 71 18 139/73 (95) 95 09/03/18 09:00 Room Air 09/03/18 08:00 98.1 65 18 145/74 (97) 100 09/03/18 04:00 98.3 68 18 126/74 (91) 100 09/03/18 00:31 98.9 64 18 141/63 (89) 97 09/02/18 22:13 66 20 Room Air 09/02/18 22:02 Room Air 09/02/18 20:17 99.4 72 18 127/69 (88) 92 09/02/18 16:00 98.9 74 18 140/93 (109) 94 09/02/18 16:00 98.9 74 18 140/93 (109) 94 Height (Feet): 5 Height (Inches): 4.00 Weight (Pounds): 133 General Appearance: no acute distress HEENT: mucous membranes moist Respiratory/Chest: lungs clear Cardiovascular: normal rate Abdomen: soft, non tender Skin: other - erythema of R ear , R lower face Microbiology Date/Time Source Procedure Growth Status 08/31/18 21:40 Blood Blood Culture - Preliminary NO GROWTH AFTER 48 HOURS Resulted 08/31/18 21:15 Blood Blood Culture - Preliminary NO GROWTH AFTER 48 HOURS Resulted 08/31/18 22:10 Nasal Nares MRSA Culture - Final Staphylococcus Aureus - Mrsa Complete 08/31/18 23:10 Urine,Clean Catch Urine Culture - Final Escherichia Coli Complete 08/31/18 22:10 Rectum - Final NO CARBAPENEM-RESISTANT ENTEROBACTERI... Complete 08/31/18 22:10 Rectum VRE Culture - Final NO VANCOMYCIN RESISTANT ENTEROCOCCUS ... Complete Current Medications Medications (Trade) Dose Ordered Sig/Katie Route PRN Reason Start Time Stop Time Status Last Admin Dose Admin Acetaminophen (Tylenol) 650 mg Q4H PRN ORAL For Pain 09/01/18 05:00 10/01/18 04:59 Albuterol/ Ipratropium (Albuterol/ Ipratropium) 3 ml Q4H PRN HHN Shortness of Breath 09/02/18 15:15 09/07/18 15:14 Artificial Tears (Akwa-Tears) 1 drop DAILY BOTH EYES 09/01/18 09:00 10/01/18 08:59 09/03/18 08:59 Aspirin (Ecotrin) 81 mg DAILY ORAL 09/01/18 09:00 10/01/18 08:59 09/02/18 09:38 Bisacodyl (Dulcolax) 10 mg Q24H PRN RECTAL Constipation 09/01/18 05:15 10/01/18 05:14 Cefazolin Sodium 1 gm/Dextrose 55 ml @ 110 mls/hr Q8HR IVPB 09/01/18 15:30 09/08/18 15:29 09/03/18 13:38 Clonidine HCl (Catapres Tab) 0.1 mg EVERY 6 HOURS PRN ORAL For High Blood Pressure 09/01/18 05:00 10/01/18 04:59 Levothyroxine Sodium (Synthroid) 25 mcg ACBREAKFAST ORAL 09/01/18 06:30 10/01/18 06:29 09/03/18 05:41 Multivitamins (Multivitamins) 1 tab DAILY ORAL 09/01/18 09:00 10/01/18 08:59 09/02/18 09:38 Sennosides (Senokot) 17.2 mg BEDTIME ORAL 09/01/18 21:00 10/01/18 20:59 09/02/18 20:22 Sorbitol (Sorbitol) 30 ml Q6H PRN ORAL Constipation 09/01/18 09:00 10/01/18 08:59 Jose J Leon MD Sep 03, 2018 15:34
[2018-09-03 16:00] VITALS: BP 109/73
--- NOTE | 2018-09-03 19:26 | NUR ---
HAND-OFF: Report given to Alda MONTANA.
--- NOTE | 2018-09-03 19:30 | NUR ---
NURSE NOTES: Received patient awake in bed with no acute signs of distress. IV site left forearm on saline lock, no signs of irritation, dressing dry and intact. Bed on lowest position, bed alarm on, 2 side rails up, bed alarm on.
[2018-09-03 20:00] VITALS: BP 131/89
[2018-09-03] MEDS: Ciprofloxacin 500mg tab ORAL SCH (20:28)
[2018-09-03] MEDS: Sennosides 8.6mg tab ORAL SCH (20:29)
[2018-09-04] VITALS: BP 155/89
[2018-09-04 04:00] VITALS: BP 125/64
[2018-09-04] MEDS: ceFAZolin sod 1 GM in D5W 55 ML IVPB SCH (05:07)
[2018-09-04] MEDS: Levothyroxine 25mcg tab ORAL SCH (05:44)
--- NOTE | 2018-09-04 07:25 | NUR ---
HAND-OFF: Report given to Branden MONTANA.
--- NOTE | 2018-09-04 07:45 | NUR ---
NURSE NOTES: Received patient in bed, awake, alert and oriented x2 with confusion, No acute distress noted, No c/o pain or any discomfort noted at this time, Bed in lowest position and Locked, Alarm is on, Call light and needs within reach, Will continue to monitor
[2018-09-04 08:00] VITALS: BP 155/85
[2018-09-04 08:20] LABS: BASOPHILS % (AUTO) 0.6 % (0.0-2.0); EOSINOPHILS % (AUTO) 3.9 % (0.0-3.0); HEMATOCRIT 42.3 % (37.0-47.0); HEMOGLOBIN 13.8 G/DL (12.0-16.0); LYMPHOCYTES % (AUTO) 16.9 % (20.0-45.0); MEAN CORPUSCULAR VOLUME 93 FL (80-99); MONOCYTES % (AUTO) 9.4 % (1.0-10.0); NEUTROPHILS % (AUTO) 69.2 % (45.0-75.0); PLATELET COUNT 167 K/UL (150-450); RED BLOOD COUNT 4.56 M/UL (4.20-5.40); RED CELL DISTRIBUTION WIDTH 12.5 % (11.6-14.8); WHITE BLOOD COUNT 5.9 K/UL (4.8-10.8)
[2018-09-04] MEDS: Aspirin EC 81mg tab ORAL SCH (08:32)
[2018-09-04] MEDS: Ciprofloxacin 500mg tab ORAL SCH (08:32)
[2018-09-04] MEDS: Artificial Tears 1.4% Op Soln BOTH EYES SCH (08:33)
[2018-09-04 09:21] LABS: ANION GAP 8 mmol/L (5-15); BLOOD UREA NITROGEN 23 mg/dL (7-18); CARBON DIOXIDE 26 MMOL/L (21-32); CHLORIDE 105 MMOL/L (98-107); CREATININE 0.6 MG/DL (0.55-1.30); POTASSIUM 3.8 MMOL/L (3.5-5.1); SODIUM 139 MMOL/L (136-145)
--- NOTE | 2018-09-04 11:54 | Infectious Diseases Prog Note ---
Assessment/Plan Assessment/Plan A; Right facial cellulitis versus dermatitis Bacteriuria with E.coli decayed teeth, gingivitis, hypertension, hypothyroidism, osteoporosis, dementia P; Discontinue Ancef, Continue Ciprofloxacin Will f/u cultures Subjective ROS Limited/Unobtainable: Yes Constitutional: Reports: no symptoms Allergies: Coded Allergies: No Known Allergies (Unverified , 08/31/18) Objective Vital Signs Last 24 Hour Vital Signs Date Time Temp Pulse Resp B/P (MAP) Pulse Ox O2 Delivery O2 Flow Rate FiO2 09/04/18 09:00 Room Air 09/04/18 08:00 97.6 71 19 155/85 (108) 97 09/04/18 04:00 96.9 93 20 125/64 (84) 96 09/04/18 00:00 98.1 68 16 155/89 (111) 96 09/03/18 21:00 Room Air 09/03/18 20:00 98.2 73 18 131/89 (103) 95 09/03/18 16:00 97.8 81 18 109/73 (85) 95 09/03/18 12:00 97.7 71 18 139/73 (95) 95 Height (Feet): 5 Height (Inches): 4.00 Weight (Pounds): 136 General Appearance: no acute distress HEENT: mucous membranes moist Respiratory/Chest: lungs clear Cardiovascular: normal rate Abdomen: soft, non tender Extremities: no edema Skin: rash, other - R ear & face Neurologic/Psychiatric: alert, responsive Laboratory Tests Test 09/04/18 07:10 White Blood Count 5.9 K/UL (4.8-10.8) Red Blood Count 4.56 M/UL (4.20-5.40) Hemoglobin 13.8 G/DL (12.0-16.0) Hematocrit 42.3 % (37.0-47.0) Mean Corpuscular Volume 93 FL (80-99) Mean Corpuscular Hemoglobin 30.3 PG (27.0-31.0) Mean Corpuscular Hemoglobin Concent 32.7 G/DL (32.0-36.0) Red Cell Distribution Width 12.5 % (11.6-14.8) Platelet Count 167 K/UL (150-450) Mean Platelet Volume 7.5 FL (6.5-10.1) Neutrophils (%) (Auto) 69.2 % (45.0-75.0) Lymphocytes (%) (Auto) 16.9 % (20.0-45.0) L Monocytes (%) (Auto) 9.4 % (1.0-10.0) Eosinophils (%) (Auto) 3.9 % (0.0-3.0) H Basophils (%) (Auto) 0.6 % (0.0-2.0) Sodium Level 139 MMOL/L (136-145) Potassium Level 3.8 MMOL/L (3.5-5.1) Chloride Level 105 MMOL/L (98-107) Carbon Dioxide Level 26 MMOL/L (21-32) Anion Gap 8 mmol/L (5-15) Blood Urea Nitrogen 23 mg/dL (7-18) H Creatinine 0.6 MG/DL (0.55-1.30) Estimat Glomerular Filtration Rate mL/min (>60) Glucose Level 86 MG/DL (74-106) Calcium Level 9.0 MG/DL (8.5-10.1) Current Medications Medications (Trade) Dose Ordered Sig/Katei Route PRN Reason Start Time Stop Time Status Last Admin Dose Admin Acetaminophen (Tylenol) 650 mg Q4H PRN ORAL For Pain 09/01/18 05:00 10/01/18 04:59 Albuterol/ Ipratropium (Albuterol/ Ipratropium) 3 ml Q4H PRN HHN Shortness of Breath 09/02/18 15:15 09/07/18 15:14 Artificial Tears (Akwa-Tears) 1 drop DAILY BOTH EYES 09/01/18 09:00 10/01/18 08:59 09/04/18 08:33 Aspirin (Ecotrin) 81 mg DAILY ORAL 09/01/18 09:00 10/01/18 08:59 09/04/18 08:32 Bisacodyl (Dulcolax) 10 mg Q24H PRN RECTAL Constipation 09/01/18 05:15 10/01/18 05:14 Cefazolin Sodium 1 gm/Dextrose 55 ml @ 110 mls/hr Q8HR IVPB 09/01/18 15:30 09/08/18 15:29 09/04/18 05:07 Ciprofloxacin (Cipro 500mg tab) 500 mg EVERY 12 HOURS ORAL 09/03/18 21:00 09/10/18 20:59 09/04/18 08:32 Clonidine HCl (Catapres Tab) 0.1 mg EVERY 6 HOURS PRN ORAL For High Blood Pressure 09/01/18 05:00 10/01/18 04:59 Levothyroxine Sodium (Synthroid) 25 mcg ACBREAKFAST ORAL 09/01/18 06:30 10/01/18 06:29 09/04/18 05:44 Multivitamins (Multivitamins) 1 tab DAILY ORAL 09/01/18 09:00 10/01/18 08:59 09/04/18 08:32 Sennosides (Senokot) 17.2 mg BEDTIME ORAL 09/01/18 21:00 10/01/18 20:59 09/03/18 20:29 Sorbitol (Sorbitol) 30 ml Q6H PRN ORAL Constipation 09/01/18 09:00 10/01/18 08:59 Jose J Leon MD Sep 04, 2018 11:54
[2018-09-04 12:00] VITALS: BP 150/82
--- NOTE | 2018-09-04 13:00 | Pulmonology Progress Note ---
Assessment/Plan Problems: (1) Facial cellulitis (2) Hypothyroidism (3) History of hypertension (4) COPD (chronic obstructive pulmonary disease) Assessment/Plan doing better no new complains symptomatic treatment respiratory treatment caban culture on Cefazolin dvt prophylaxis. Subjective ROS Limited/Unobtainable: No Constitutional: Reports: no symptoms HEENT: Repors: no symptoms Respiratory: Reports: no symptoms Allergies: Coded Allergies: No Known Allergies (Unverified , 08/31/18) Objective Last 24 Hour Vital Signs Date Time Temp Pulse Resp B/P (MAP) Pulse Ox O2 Delivery O2 Flow Rate FiO2 09/04/18 12:00 98.3 77 19 150/82 (104) 96 09/04/18 09:00 Room Air 09/04/18 08:00 97.6 71 19 155/85 (108) 97 09/04/18 04:00 96.9 93 20 125/64 (84) 96 09/04/18 00:00 98.1 68 16 155/89 (111) 96 09/03/18 21:00 Room Air 09/03/18 20:00 98.2 73 18 131/89 (103) 95 09/03/18 16:00 97.8 81 18 109/73 (85) 95 Intake and Output 09/03/18 09/04/18 19:00 07:00 Intake Total 440 ml 110 ml Output Total 600 ml Balance 440 ml -490 ml Intake Oral 440 ml IV Total 110 ml Output Urine Total 600 ml # Voids 6 # Bowel Movements 1 General Appearance: WD/WN HEENT: normocephalic Respiratory/Chest: chest wall non-tender, lungs clear Cardiovascular: normal peripheral pulses, normal rate Abdomen: normal bowel sounds, soft, non tender Genitourinary: normal external genitalia Skin: no rash, no lesions Lymphatic: no neck adenopathy Laboratory Tests 09/04/18 07:10: White Blood Count 5.9, Red Blood Count 4.56, Hemoglobin 13.8, Hematocrit 42.3, Mean Corpuscular Volume 93, Mean Corpuscular Hemoglobin 30.3, Mean Corpuscular Hemoglobin Concent 32.7, Red Cell Distribution Width 12.5, Platelet Count 167, Mean Platelet Volume 7.5, Neutrophils (%) (Auto) 69.2, Lymphocytes (%) (Auto) 16.9L, Monocytes (%) (Auto) 9.4, Eosinophils (%) (Auto) 3.9H, Basophils (%) ( Auto) 0.6, Sodium Level 139, Potassium Level 3.8, Chloride Level 105, Carbon Dioxide Level 26, Anion Gap 8, Blood Urea Nitrogen 23H, Creatinine 0.6, Estimat Glomerular Filtration Rate , Glucose Level 86, Calcium Level 9.0 Current Medications Medications (Trade) Dose Ordered Sig/Katie Route PRN Reason Start Time Stop Time Status Last Admin Dose Admin Acetaminophen (Tylenol) 650 mg Q4H PRN ORAL For Pain 09/01/18 05:00 10/01/18 04:59 Albuterol/ Ipratropium (Albuterol/ Ipratropium) 3 ml Q4H PRN HHN Shortness of Breath 09/02/18 15:15 09/07/18 15:14 Artificial Tears (Akwa-Tears) 1 drop DAILY BOTH EYES 09/01/18 09:00 10/01/18 08:59 09/04/18 08:33 Aspirin (Ecotrin) 81 mg DAILY ORAL 09/01/18 09:00 10/01/18 08:59 09/04/18 08:32 Bisacodyl (Dulcolax) 10 mg Q24H PRN RECTAL Constipation 09/01/18 05:15 10/01/18 05:14 Ciprofloxacin (Cipro 500mg tab) 500 mg EVERY 12 HOURS ORAL 09/03/18 21:00 09/10/18 20:59 09/04/18 08:32 Clonidine HCl (Catapres Tab) 0.1 mg EVERY 6 HOURS PRN ORAL For High Blood Pressure 09/01/18 05:00 10/01/18 04:59 Levothyroxine Sodium (Synthroid) 25 mcg ACBREAKFAST ORAL 09/01/18 06:30 10/01/18 06:29 09/04/18 05:44 Multivitamins (Multivitamins) 1 tab DAILY ORAL 09/01/18 09:00 10/01/18 08:59 09/04/18 08:32 Sennosides (Senokot) 17.2 mg BEDTIME ORAL 09/01/18 21:00 10/01/18 20:59 09/03/18 20:29 Sorbitol (Sorbitol) 30 ml Q6H PRN ORAL Constipation 09/01/18 09:00 10/01/18 08:59 Shilpi Hernandez MD Sep 04, 2018 13:00
--- NOTE | 2018-09-04 14:23 | General Progress Note ---
Assessment/Plan Problem List: (1) History of hypertension ICD Codes: Z86.79 - Personal history of other diseases of the circulatory system SNOMED: 967666862 (2) Facial cellulitis ICD Codes: L03.211 - Cellulitis of face SNOMED: 030110221 (3) COPD (chronic obstructive pulmonary disease) ICD Codes: J44.9 - Chronic obstructive pulmonary disease, unspecified SNOMED: 71761949 (4) Hypothyroidism ICD Codes: E03.9 - Hypothyroidism, unspecified SNOMED: 91834259 Status: stable, progressing Assessment/Plan o2 pulm tx abx cbc dc if clear Subjective Constitutional: Reports: malaise Allergies: Coded Allergies: No Known Allergies (Unverified , 08/31/18) All Systems: reviewed and negative except above Subjective calm in bed Objective Last 24 Hour Vital Signs Date Time Temp Pulse Resp B/P (MAP) Pulse Ox O2 Delivery O2 Flow Rate FiO2 09/04/18 12:00 98.3 77 19 150/82 (104) 96 09/04/18 09:00 Room Air 09/04/18 08:00 97.6 71 19 155/85 (108) 97 09/04/18 04:00 96.9 93 20 125/64 (84) 96 09/04/18 00:00 98.1 68 16 155/89 (111) 96 09/03/18 21:00 Room Air 09/03/18 20:00 98.2 73 18 131/89 (103) 95 09/03/18 16:00 97.8 81 18 109/73 (85) 95 Intake and Output 09/03/18 09/04/18 19:00 07:00 Intake Total 440 ml 110 ml Output Total 600 ml Balance 440 ml -490 ml Intake Oral 440 ml IV Total 110 ml Output Urine Total 600 ml # Voids 6 # Bowel Movements 1 Laboratory Tests 09/04/18 07:10: White Blood Count 5.9, Red Blood Count 4.56, Hemoglobin 13.8, Hematocrit 42.3, Mean Corpuscular Volume 93, Mean Corpuscular Hemoglobin 30.3, Mean Corpuscular Hemoglobin Concent 32.7, Red Cell Distribution Width 12.5, Platelet Count 167, Mean Platelet Volume 7.5, Neutrophils (%) (Auto) 69.2, Lymphocytes (%) (Auto) 16.9L, Monocytes (%) (Auto) 9.4, Eosinophils (%) (Auto) 3.9H, Basophils (%) ( Auto) 0.6, Sodium Level 139, Potassium Level 3.8, Chloride Level 105, Carbon Dioxide Level 26, Anion Gap 8, Blood Urea Nitrogen 23H, Creatinine 0.6, Estimat Glomerular Filtration Rate , Glucose Level 86, Calcium Level 9.0 Height (Feet): 5 Height (Inches): 4.00 Weight (Pounds): 136 General Appearance: lethargic EENT: normal ENT inspection Neck: normal alignment Cardiovascular: normal peripheral pulses, normal rate, regular rhythm Respiratory/Chest: chest wall non-tender, lungs clear, normal breath sounds Abdomen: normal bowel sounds, non tender, soft Extremities: normal inspection Edema: no edema noted Arm (L), no edema noted Arm (R), no edema noted Leg (L), no edema noted Leg (R), no edema noted Pedal (L), no edema noted Pedal (R), no edema noted Generalized Neurologic: motor weakness Skin: normal pigmentation, warm/dry Objective sl right neck redness Ramirez Kruger DO Sep 04, 2018 14:23
--- NOTE | 2018-09-04 15:04 | NUR ---
*-* DISCHARGE PLANNED*-* PATIENT IS DISCHARGED TO: [facility] ROOM# [id number] SKILLED T:[phone] FOR NURSE TO NURSE REPORT [facility] HAS BEEN ARRANGED FOR [facility] AT 1530
[2018-09-04] MEDS ORDERED: CIPRO500 MG PO ×3 (15:20→15:24)
[2018-09-04 16:00] VITALS: BP 132/78
--- NOTE | 2018-09-04 16:09 | NUR ---
NURSE NOTES: Patient discharged to [facility] accompanied ambulance personnel in stable condition. Report given to Pam RN supervisor soldering at [facility]. Discharge instruction given to RN to continue Cipro 500 mg po q12hrs for 3 more days, Called and left message to the family member, Laney Leyva regarding discharge. Removed IV and ID, No s/s of infection on IV remove site. Skin assessment done, No new skin issue, Picture was taken on rt side of face, sacral and perianal area and uploaded.
--- NOTE | 2018-09-05 09:37 | Discharge Summary ---
Discharge Summary Discharge Summary _ DATE OF ADMISSION: 08/31/2018 DATE OF DISCHARGE: 09/04/2018 DISCHARGED BY: Dr. Ramirez Kruger CONSULTANTS: Dr. Shilpi Leon BRIEF HOSPITAL COURSE: Patient is an 83-year-old female, who presented to ER for evaluation of redness to the face and neck for 1 day. Symptoms were noticed by the nursing staff. [facility]. She denied pain. Denied fever or chills. Denied shortness of breath. She has medical history significant for hypertension, hypothyroidism, COPD, hyperlipidemia and osteoporosis. On evaluation at the ED, vital signs were stable. On examination, there was slight area of erythema and induration to the right side of the neck and lower face. There was no fluctuance or discharge noted. Blood work did not show any leukocytosis. Hemoglobin and hematocrit were stable. There were no electrolyte abnormalities. Lactic acid was normal. Urinalysis with 1+ protein , 2+ blood, positive nitrite, 3+ leukocyte esterase, too many to count WBC. Chest x-ray showed atelectasis with no consolidation or infiltrate. She was started on Unasyn. She was admitted for evaluation of facial cellulitis and pyuria. Infectious disease specialist was consulted. On examination, patient had decayed tooth, likely gingivitis. She was pancultured. She was given Ancef. Wagon Person was consulted. She was given nebulizer treatments as needed. She was continued on Synthroid. Urine culture showed growth of E. coli. Ciprofloxacin was added. Ancef was eventually discontinued. There was no leukocytosis. Patient was afebrile. She was eventually cleared for discharge back to longterm. FINAL DIAGNOSES: Facial cellulitis Decayed teeth, gingivitis Hypothyroidism COPD Hypertension Osteoporosis Dementia DISPOSITION: Patient was discharged to a SNF. DISCHARGE MEDICATIONS: Refer to Discharge Medication List. Continue ciprofloxacin for 3 more days. I have been assigned to complete a discharge summary on this account, I was not involved with the patient's management. Zaida Gonsales NP Sep 05, 2018 09:36
== END 2018-09-04 16:33 | DRG 603 ==
LOC: EDBD 21:08 → EMR 21:46 → EDBEDREQ 22:55 → 4E 23:05 → EDBEDREQ 09-01 01:09
DX: L03.211 Cellulitis of face (principal); I10 Essential (primary) hypertension; K05.10 Chronic gingivitis, plaque induced; F03.90 Unspecified dementia, unspecified severity, without behavioral disturbance, psychotic disturbance, mood disturbance, and anxiety; K02.9 Dental caries, unspecified; E03.9 Hypothyroidism, unspecified; J44.9 Chronic obstructive pulmonary disease, unspecified; M81.0 Age-related osteoporosis without current pathological fracture; Z66 Do not resuscitate
CPT/HCPCS: 36415; 71045; 80048; 80053; 81003; 83605; 85025; 87040; 87081; 87086; 87181; 94664; 96361; 96365; 99285